=== PATIENT | male | born 1985 | race Caucasian/White ===

== ENCOUNTER 2021-03-26 01:03 | Emergency (ER) | payer OTHER ==
[~2021-03-26 01:03] MED LIST: ADDERALL 20 MG20 MG PO; INDOCIN25 MG PO
== END 2021-03-26 03:55 | disposition home or self-care (01) ==
LOC: FER 01:03
DX: T68.XXXA Hypothermia, initial encounter (principal); S61.411A Laceration without foreign body of right hand, initial encounter; Z23 Encounter for immunization; W26.0XXA Contact with knife, initial encounter; Y92.89 Other specified places as the place of occurrence of the external cause; Y99.0 Civilian activity done for income or pay
CPT/HCPCS: 90471; 90715